=== PATIENT | male | born 1945 ===

== ENCOUNTER 2025-04-20 16:30 | Inpatient (IN) | payer MEDICARE ==
[~2025-04-20] VITALS: Ht 177.8 cm; Wt 83.2 kg
[2025-04-20 17:01] LABS: BASOPHILS ABSOLUTE AUTO 0.04 K/mm3 (0.00-0.23); BASOPHILS PERCENT AUTO 0 % (0-2); EOSINOPHILS ABSOLUTE AUTO 0.03 K/mm3 (0.00-0.68); EOSINOPHILS PERCENT AUTO 0 % (0-6); Hematocrit 36.1 % (37.0-53.0); Hemoglobin 12.4 g/dL (13.5-17.5); IMMATURE GRAN ABSOLUTE AUTO 0.10 K/mm3 (0.00-0.10); IMMATURE GRAN PERCENT AUTO 1 % (0-1); LYMPHOCYTES ABSOLUTE AUTO 2.20 K/mm3 (0.84-5.20); LYMPHOCYTES PERCENT AUTO 21 % (21-46); MONOCYTES ABSOLUTE AUTO 0.61 K/mm3 (0.16-1.47); MONOCYTES PERCENT AUTO 6 % (4-13); Mean Corpuscular HGB Conc 34.3 g/dL (31.5-36.5); Mean Corpuscular Volume 99 fL (80-100); NEUTROPHILS ABSOLUTE AUTO 7.35 K/mm3 (1.96-9.15); NEUTROPHILS PERCENT AUTO 71 % (41-73); NRBC ABSOLUTE 0.00 K/mm3 (0.00-0.02); NRBC Auto 0.0 /100 WBC (0.0-0.2); Platelet Count 287 K/mm3 (150-400); RDW Coefficient Variation 12.5 % (11.7-14.2); RDW Standard Deviation 44.3 fL (35.1-46.3)
[2025-04-20] MEDS ORDERED: ATOR10 PO (17:12)
[2025-04-20] MEDS ORDERED: AMLO5 PO (17:12)
[2025-04-20] MEDS ORDERED: DILT120 PO (17:12)
[2025-04-20] MEDS ORDERED: CATAPRES0.1 MG PO (17:13)
[2025-04-20] MEDS ORDERED: ELIQUIS5 M2 PO (17:13)
[2025-04-20] MEDS ORDERED: METO50 PO (17:14)
[2025-04-20] MEDS ORDERED: LOSA50 PO (17:14)
[2025-04-20 17:27] LABS: Alanine Aminotransfer (ALT/SGP 27.0 U/L (12-78); Albumin, Blood 3.5 g/dL (3.4-5.0); Albumin/Globulin Ratio 0.9 (0.8-1.8); Anion Gap 14.0 mmol/L (3-11); Aspartate Aminotrans (AST/SGOT 17.0 U/L (12-37); Bilirubin, Total 0.9 mg/dL (0.1-1.0); Blood Urea Nitrogen 40.0 mg/dL (8-24); CO2, Blood 23.0 mmol/L (21-32); Calcium, Blood 10.3 mg/dL (8.5-10.1); Chloride, Blood 98.0 mmol/L (98-108); Creatinine, Blood 2.05 mg/dL (0.60-1.20); Globulin, Blood 4.0 g/dL (2.2-4.0); Glucose, Blood 194.0 mg/dL (70-99); Potassium, Blood 4.6 mmol/L (3.5-5.5); Sodium, Blood 130.0 mmol/L (136-145); Total Protein, Blood 7.5 g/dL (6.4-8.2)
[2025-04-20] MEDS ORDERED: NS 1,000 ML IV SCH ×2 (17:50→20:10)
[2025-04-20] MEDS ORDERED: VALA500 (18:39)
[2025-04-20] MEDS ORDERED: Ondansetron HCl 2 MG / ML 2ML Vial IV PRN (20:10)
[2025-04-20] MEDS ORDERED: FLU VACC TS2025(65UP)/MF59C/PF 45 MCG/0.5 ML SYRINGE IM SCH (20:50)
[2025-04-20 22:10] VITALS: BP 121/73
[2025-04-21] VITALS (8 sets, daily range): BP systolic 111–152; BP diastolic 53–88
[2025-04-21 00:47] LABS: Source, Urine Clean Catch
[2025-04-21 00:49] LABS: Bilirubin, Urine Neg (Neg); Glucose Qualitative, Urine Neg (Neg); Ketones, Urine Neg (Neg); Leukocyte Esterase, Urine Neg (Neg); Protein, Urine 1+ (Neg); Specific Gravity, Urine 1.010 (1.003-1.022); Urobilinogen, Urine NORM (Normal)
[2025-04-21 01:06] LABS: Color, Urine Yellow (P-Yellow)
[2025-04-21 06:15] LABS: Anion Gap 9.0 mmol/L (3-11); Blood Urea Nitrogen 35.0 mg/dL (8-24); CO2, Blood 22.0 mmol/L (21-32); Calcium, Blood 9.5 mg/dL (8.5-10.1); Chloride, Blood 104.0 mmol/L (98-108); Creatinine, Blood 1.59 mg/dL (0.60-1.20); Glucose, Blood 111.0 mg/dL (70-99); Magnesium, Blood 2.0 mg/dL (1.6-2.4); Potassium, Blood 4.3 mmol/L (3.5-5.5); Sodium, Blood 131.0 mmol/L (136-145)
--- NOTE | 2025-04-21 06:23 | NUR ---
SHIFT SUMMARY PT ARRIVED FROM ER AROUND 2200. ORIENTED TO ROOM. SISTER, WHO IS ALSO CAREGIVER, WAS AT BEDSIDE UNTIL PT WAS SETTLED. PT A&Ox3 AND PLEASANT. PT HAS BEEN TAKING VALACYCLOVIR SINCE 04/09/25 FOR SHINGLES. AFFECTED AREA IS SCABBED OVER ON LEFT UPPER BACK AND ARM. PICTURE IN CHART. NO C/O PAIN. PT IMPULSIVE SO BED ALARM ON. PT HAS BEEN AFIB IN THE 70s ON TELE BUT HR DOES INCREASE TO 150 WHEN STANDING AT SIDE OF BED. NS INFUSING AT 125ml/hr. VSS. BED IN LOWEST POSITION AND CALL LIGHT IN REACH.
--- NOTE | 2025-04-21 08:19 | NUR ---
HOT WORKER NOTIFICATION NOTE: RECEIVE A CALL FROM [facility] AT 0810'S TO REPORTS PATIENT HR SUSTAINING IN 120'S-130'S AND SOMETIMES IN 140'S 150'S, AFIB. PATIENT SITTING UP ON THE EOB EATING HIS BREAKFAST. PATIENT DENIES CP/PRESSURE, SOB, N/V AND DIZZINESS. PATIENT A/OX3, CONFUSED TO DATES. NOTIFIED DR. NGUYEN. PER DR. NGUYEN SHE WILL PUT AN ORDER IN FOR METOPROLOL IV AND PO.
--- NOTE | 2025-04-21 08:50 | NUR ---
HR REASSESSMENT NOTE: CALLED LEILA LAZARO TO FOLLOW UP PATIENT HR. PER IVETH, PATIENT HR WAS SUSTAINING 120'S-150'S ONLY LAST FOR ABOUT 7 MINS AND BACK DOWN TO LOW 100'S BPM. PATIENT OT DOSE METOPROLOL IV WERE NOT GIVEN D/T HR IN LOW 100'S BPM PER BACKGROUND INVESTIGATOR, INSTEAD NEDICATED c HIS SCHEDULED PO METOPROLOL AND CARDIZEM PER EMAR.
[2025-04-21] MEDS ORDERED: Metoprolol Tartrate 1 MG/ML 5 ML VIAL IV ONE (09:00)
[2025-04-21] MEDS ORDERED: Metoprolol Tartrate 1 MG/ML 5 ML VIAL IV PRN (09:00)
--- NOTE | 2025-04-21 17:03 | NUR ---
SHIFT SUMMARY: PATIENT A/O TO SELF, PLACED AND PERSON, CONFUSED TO DATES AND CURRENT SITUATION. PATIENT DENIES CP/PRESSURE, SOB, N/V AND DIZZINESS. PATIENT ON TELE A-FIB HR IN 70'S TO LOW 110'S. PATIENT SHINGLE RASH TO L SHOULDER/BACK/ARM APPEARS DRY/CRUSTED. PATIENT RECEIVED HIS ANTIVIRAL MED PER ORDER. PATIENT MEDICATED FOR SHINGLE PAIN PER EMAR c MOD EFFECT. PATIENT HAD PT EVAL TODAY, RECOMMENDING RETURN TO LIVING SITUATION c NO F/U NEEDED AND TO SEE ORTHO OUTPT FOR L SHOULDER PAIN. PATIENT RENAL US WAS DONE TODAY, AWAITING FOR RESULT. PATIENT HAS MOD APPETITE, CONTINENT OF BLADDER AND USES URINAL AT BEDSIDE. PATIENT SISTER VISITED TODAY, SPOKE TO DR. NGUYEN AT BEDSIDE FOR AN UPDATE, ALL HER QUESTIONS WERE ANSWERED AND VERBALIZED UNDERSTANDING c NO FURTHER QUESTIONS AT THIS TIME. VITAL SIGNS REVIEWED. BED ALARM ON FOR SAFETY. CALL LIGHT IN REACH.
[2025-04-21 18:58] LABS: U Amphetamine Screen Not Detected; U Barbiturate Screen Not Detected; U Benzodiazapine Screen Not Detected; U Buprenorphine Screen Not Detected; U Cannabinoids Screen DETECTED; U Cocaine Screen Not Detected; U Methadone Screen Not Detected; U Methamphetamine Screen Not Detected; U Opiates Screen Not Detected; U Oxycodone Screen Not Detected; U Phencyclidine Screen Not Detected
[2025-04-22 03:09] VITALS: BP 140/71
[2025-04-22 05:12] LABS: BASOPHILS ABSOLUTE AUTO 0.07 K/mm3 (0.00-0.23); BASOPHILS PERCENT AUTO 1 % (0-2); EOSINOPHILS ABSOLUTE AUTO 0.07 K/mm3 (0.00-0.68); EOSINOPHILS PERCENT AUTO 1 % (0-6); Hematocrit 33.8 % (37.0-53.0); Hemoglobin 11.5 g/dL (13.5-17.5); IMMATURE GRAN ABSOLUTE AUTO 0.06 K/mm3 (0.00-0.10); IMMATURE GRAN PERCENT AUTO 1 % (0-1); LYMPHOCYTES ABSOLUTE AUTO 2.18 K/mm3 (0.84-5.20); LYMPHOCYTES PERCENT AUTO 33 % (21-46); MONOCYTES ABSOLUTE AUTO 0.45 K/mm3 (0.16-1.47); MONOCYTES PERCENT AUTO 7 % (4-13); Mean Corpuscular HGB Conc 34.0 g/dL (31.5-36.5); Mean Corpuscular Volume 102 fL (80-100); NEUTROPHILS ABSOLUTE AUTO 3.78 K/mm3 (1.96-9.15); NEUTROPHILS PERCENT AUTO 57 % (41-73); NRBC ABSOLUTE 0.00 K/mm3 (0.00-0.02); NRBC Auto 0.0 /100 WBC (0.0-0.2); Platelet Count 253 K/mm3 (150-400); RDW Coefficient Variation 12.5 % (11.7-14.2); RDW Standard Deviation 44.5 fL (35.1-46.3)
[2025-04-22 05:42] LABS: Anion Gap 9 mmol/L (3-11); Blood Urea Nitrogen 20 mg/dL (8-24); CHOL/HDL RATIO 3.6; CO2, Blood 20 mmol/L (21-32); Calcium, Blood 8.8 mg/dL (8.5-10.1); Chloride, Blood 111 mmol/L (98-108); Cholesterol 147 mg/dL (50-200); Creatinine, Blood 1.12 mg/dL (0.60-1.20); Glucose, Blood 120 mg/dL (70-99); HDL Cholesterol 41 mg/dL (>39); LDL/HDL RATIO 2.0; Low Density Lipoprotein Chol 81 mg/dL (0-110); Magnesium, Blood 1.9 mg/dL (1.6-2.4); Potassium, Blood 3.9 mmol/L (3.5-5.5); Sodium, Blood 136 mmol/L (136-145); Thyroid Stimulating Hormone 4.400 uIU/mL (0.360-4.800); Triglycerides 124 mg/dL (30-160); Very Low Density Lipoprot Chol 24 mg/dL (6-32)
--- NOTE | 2025-04-22 05:44 | NUR ---
TRADITIONAL CHINESE HERBALIST SUMMARY VSS. ALERT TO SELF. UP WITH ASSIST TO VOID IN URINAL. AWAKE AT INTERVALS, OTHERWISE, HAS BEEEN RESTING QUIETLY WHEN MONITORED. IVF INFUSING AT 125 ML/HR. MED TELE A FIB. TOLERATED PILLS WITH WATER. SHINGLES REMAIN ON BACK AND SHOULER AND REMAIN DRY, NO NOTED DISCHARGE FROM THEM. CALL LIGHT IN REACH, RAILS UP X 2 AND BED IN LOW POSITION FOR SAFETY. WILL CONTINUE TO MONITOR
[2025-04-22 07:30] VITALS: BP 176/80
[2025-04-22 11:12] VITALS: BP 142/82
--- NOTE | 2025-04-22 13:57 | NUR ---
DISCHARGE NOTE PATIENT AND SISTER EDUCATED ABOUT FOLLOW UP APPOINTMENTS, IMPORTANCE OF FOLLOWING THROUGH, EDUCATED ON NO NEW MEDICATIONS FOR HOME, AND WHAT WAS D/C'D AT THE HOSPITAL. PATIENT WAS GIVEN EDUCATION ON TOXIC ENCEPHALOPATHY WITH DISCHARGE PACKET. INSTRUCTED TO TAKE THIS TO THEIR NEXT APPOINTMENT WITH PCP. PATIENT WAS TAKEN OUT TO FAMILY RIDE BY MEDICAL STAFF. PATIENT AND SISTER DENIED ANY ADDITIONAL QUESTIONS OR CONCERNS AT THIS TIME,
== END 2025-04-22 13:56 | disposition home or self-care (01) | DRG 682 ==
LOC: ER 16:30 → MEDS 16:31
PROVIDERS: Family Medicine; Nurse Practitioner Acute Care; Student in an Organized Health Care Education/Training Program; ADMIT Student in an Organized Health Care Education/Training Program
DX: N17.9 Acute kidney failure, unspecified (principal); G92.8 Other toxic encephalopathy; J98.59 Other diseases of mediastinum, not elsewhere classified; E87.1 Hypo-osmolality and hyponatremia; I48.20 Chronic atrial fibrillation, unspecified; N18.30 Chronic kidney disease, stage 3 unspecified; E86.0 Dehydration; E83.52 Hypercalcemia; D63.1 Anemia in chronic kidney disease; E66.01 Morbid (severe) obesity due to excess calories; Z68.28 Body mass index [BMI] 28.0-28.9, adult; I95.9 Hypotension, unspecified; F10.10 Alcohol abuse, uncomplicated; I12.9 Hypertensive chronic kidney disease with stage 1 through stage 4 chronic kidney disease, or unspecified chronic kidney disease; E78.5 Hyperlipidemia, unspecified; Z79.01 Long term (current) use of anticoagulants; B02.9 Zoster without complications; F12.90 Cannabis use, unspecified, uncomplicated; Z86.73 Personal history of transient ischemic attack (TIA), and cerebral infarction without residual deficits
CPT/HCPCS: 36415; 70450; 70496; 70498; 71045; 76770; 80048; 80053; 80061; 83690; 83735; 83880; 84443; 84484; 85025; 93005; 93010; 93306; 96360; 96361; 97162; 97530; 99285-25; A9270; G0378; J7030; Q9967